=== PATIENT | male | born 1950 | race Caucasian/White ===

== ENCOUNTER → 2016-11-18 | Outpatient (CLI) | payer MEDICARE, OTHER ==
[2016-11-18 11:23] LABS: COMPLEMENT C3 160 MG/DL (90-180); COMPLEMENT C4 30.8 MG/DL (10-40)
[2016-11-20 12:59] LABS: ALBUMIN 3.67 GM/DL (3.29-5.55); ALBUMIN % 52.4 % (55.8-66.1); GAMMA GLOBULIN % 12.2 % (11.1-18.8)
== END ==
LOC: M LAB 10:10
PROVIDERS: ATTEND Internal Medicine Nephrology
DX: N18.3 Chronic kidney disease, stage 3 (moderate) (principal); R80.9 Proteinuria, unspecified; I70.1 Atherosclerosis of renal artery

== ENCOUNTER → 2016-11-19 | Outpatient (REF) | payer MEDICARE, OTHER | LOC: M LAB REF 10:34 | PROVIDERS: ATTEND Internal Medicine Nephrology | DX: N18.3 Chronic kidney disease, stage 3 (moderate) (principal); R80.9 Proteinuria, unspecified; I70.1 Atherosclerosis of renal artery ==

== ENCOUNTER → 2016-11-20 | Outpatient (REF) | payer MEDICARE, OTHER | LOC: M LAB REF 10:25 | PROVIDERS: ATTEND Internal Medicine Nephrology | DX: N18.3 Chronic kidney disease, stage 3 (moderate) (principal); R80.9 Proteinuria, unspecified; I70.1 Atherosclerosis of renal artery ==

== ENCOUNTER → 2016-11-26 | Outpatient (REF) | payer MEDICARE, OTHER ==
[2016-11-28 00:09] LABS: FREE KAPPA LIGHT CHAINS SERUM 74.31 mg/L (3.30-19.40); FREE LAMBDA LIGHT CHAINS SERUM 36.97 mg/L (5.71-26.30); KAPPA/LAMBDA RATIO SERUM 2.01 (0.26-1.65)
== END ==
LOC: M LAB REF 12:50
PROVIDERS: ATTEND Internal Medicine Nephrology
DX: N04.9 Nephrotic syndrome with unspecified morphologic changes (principal); I12.9 Hypertensive chronic kidney disease with stage 1 through stage 4 chronic kidney disease, or unspecified chronic kidney disease; N18.3 Chronic kidney disease, stage 3 (moderate)

== ENCOUNTER → 2017-01-01 | Outpatient (REF) | payer MEDICARE, OTHER ==
[2017-01-01 13:56] LABS: PERCENT SATURATION 24.1 % (19.7-37.4)
== END ==
LOC: M LAB REF 13:16
PROVIDERS: ATTEND Internal Medicine Nephrology
DX: D50.9 Iron deficiency anemia, unspecified (principal)

== ENCOUNTER → 2017-02-19 | Outpatient (CLI) | payer MEDICARE, OTHER ==
[2017-02-19 13:37] LABS: ALBUMIN 3.3 GM/DL (3.2-5.2); ALBUMIN/GLOBULIN RATIO 0.92 (1.00-1.93); BILIRUBIN,TOTAL 0.2 MG/DL (0.2-1.0); CALCIUM LEVEL 8.2 MG/DL (8.8-10.2); CREATININE FOR GFR 2.97 MG/DL (0.70-1.30); FREE T4 0.8 NG/DL (0.76-1.46); GLOMERULAR FILTRATION RATE 22.7 (>49); TOTAL PROTEIN 6.9 GM/DL (6.4-8.2)
[2017-02-19 13:42] LABS: BASO # 0.1 K/mm3 (0.0-0.2); BASO % 0.9 % (0.0-1.0); EOS # 0.5 K/mm3 (0.0-0.50); EOS % 6.4 % (0.0-3.0); LARGE UNSTAINED CELL # 0.2 K/mm3 (0.0-0.4); LARGE UNSTAINED CELL % 1.9 % (0.0-4.0); LYMPH # 1.9 K/mm3 (1.5-4.5); LYMPH % 22.6 % (24.0-44.0); MEAN CORPUSCULAR HEMOGLOBIN 30.7 pg (27.0-33.0); MEAN CORPUSCULAR HGB CONC 33.5 g/dl (32.0-36.5); MEAN CORPUSCULAR VOLUME 91.7 fl (80.0-96.0); MONO # 0.4 K/mm3 (0.0-0.8); MONO % 5.4 % (0.0-5.0); NEUTROPHILS % 62.9 % (36.0-66.0); PLATELET COUNT, AUTOMATED 273 k/mm3 (150-450); RED CELL DISTRIBUTION WIDTH 13.1 % (11.5-14.5); WHITE BLOOD COUNT 7.9 K/mm3 (4.0-10.0)
== END ==
LOC: M SMT 09:03
PROVIDERS: ATTEND Physician Assistant
DX: I10 Essential (primary) hypertension (principal)

== ENCOUNTER → 2017-03-06 | Outpatient (CLI) | payer MEDICARE, OTHER ==
--- NOTE | 2017-03-06 16:04 | REP ---
Clinical: Chronic cough with history of nicotine dependence. Comparison: 08/24/2012 Findings: The bilateral lung walker are well-aerated, symmetric, and relatively clear. Very minimal scattered chronic changes primarily involving the left base are appreciated. No consolidation, significant nodule or mass lesion. No pleural effusion/reaction or pneumothorax. Tracheobronchial tree is patent. No axillary, hilar, or mediastinal adenopathy. Atherosclerotic changes to the thoracic aorta and coronary arteries noted without aortic aneurysm, cardiomegaly or pericardial effusion. Surrounding musculoskeletal structures are intact. Impression: Minimal age-related scarring. Atherosclerotic changes to the thoracic aorta and coronary arteries. No acute mediastinal or pleuroparenchymal process appreciated. Signed by Luis Mann MD 03/06/2017 03:56 P
== END ==
LOC: M RAD 15:32
PROVIDERS: ATTEND Physician Assistant
DX: I70.0 Atherosclerosis of aorta (principal); F17.210 Nicotine dependence, cigarettes, uncomplicated; R05 Cough

== ENCOUNTER → 2017-04-27 | Outpatient (CLI) | payer MEDICARE, OTHER ==
[~2017-04-27] MED LIST: ALLO15TA; AMLO10TA2 PO; BREO1INH INH; BUPR150T3 PO; CALC1CAP31 PO; CINN500C9 PO; CLOB05OI; CLOP75TA2 PO; FISH1000 PO; GEMF600T PO; LOSA50TA20 PO; METO100T5 PO; OCUVCAP PO; PANT40TA2 PO; SIMV80TA PO; VIAG100T PO; VITA-121 PO; VITMTA PO; ZYLO300T4 PO
[2017-04-27 11:54] LABS: BASO % 0.7 % (0.0-1.0); EOS # 0.4 K/mm3 (0.0-0.50); EOS % 6.1 % (0.0-3.0); LARGE UNSTAINED CELL # 0.2 K/mm3 (0.0-0.4); LARGE UNSTAINED CELL % 2.5 % (0.0-4.0); LYMPH # 1.6 K/mm3 (1.5-4.5); LYMPH % 20.5 % (24.0-44.0); MEAN CORPUSCULAR HEMOGLOBIN 31.1 pg (27.0-33.0); MEAN CORPUSCULAR HGB CONC 33.9 g/dl (32.0-36.5); MEAN CORPUSCULAR VOLUME 91.8 fl (80.0-96.0); MONO # 0.5 K/mm3 (0.0-0.8); MONO % 6.7 % (0.0-5.0); NEUTROPHILS # 4.5 K/mm3 (1.8-7.7); NEUTROPHILS % 63.5 % (36.0-66.0); PLATELET COUNT, AUTOMATED 236 k/mm3 (150-450); RED CELL DISTRIBUTION WIDTH 13.2 % (11.5-14.5); WHITE BLOOD COUNT 7.1 K/mm3 (4.0-10.0)
[2017-04-27 11:59] LABS: INR 0.92
[2017-04-27 12:58] LABS: CREATININE FOR GFR 2.85 MG/DL (0.70-1.30); GLOMERULAR FILTRATION RATE 23.8 (>49); POTASSIUM SERUM 4.9 MEQ/L (3.5-5.1)
== END ==
LOC: M SMT 08:51
PROVIDERS: ATTEND Surgery Vascular Surgery
DX: I70.213 Atherosclerosis of native arteries of extremities with intermittent claudication, bilateral legs (principal); D69.8 Other specified hemorrhagic conditions

== ENCOUNTER → 2017-05-31 | Outpatient (CLI) | payer MEDICARE, OTHER ==
--- NOTE | 2017-06-01 08:03 | REP ---
Lumbar spine five views: There are no comparisons. Vertebral body heights and alignment are normal. There is advanced degenerative disc disease at every lumbar level. There is no spondylolysis or spondylolisthesis. There is moderate facet osteoarthritis throughout the lumbar spine. The sacroiliac articulations are unremarkable. I suspect there is a vascular stent in the proximal left renal artery. Impression: Advanced degenerative disc disease and facet osteoarthritis throughout the lumbar spine. Signed by Jason Barahona MD 05/31/2017 03:39 P
--- NOTE | 2017-06-01 08:03 | REP ---
Left hip two views: Mineralization and joint space are normal. There is no fracture or dislocation. There is calcified vascular atheroma. The study is otherwise unremarkable. Impression: Essentially negative left hip. Signed by Jason Barahona MD 05/31/2017 03:40 P
== END ==
LOC: M WUC 14:59
PROVIDERS: ATTEND Physician Assistant
DX: M54.5 Low back pain (principal); M25.552 Pain in left hip; M51.86 Other intervertebral disc disorders, lumbar region

== ENCOUNTER → 2017-06-11 | Outpatient (CLI) | payer MEDICARE, OTHER ==
--- NOTE | 2017-06-11 16:34 | REP ---
MRA BRAIN WITHOUT CONTRAST: HISTORY: Slurred speech. 3D [id number] MR angiography was performed at the level of the [place]. There is no aneurysm or arteriovenous malformation. Mild atherosclerotic disease involves the cavernous and supraclinoid internal carotid arteries, right posterior cerebral artery and left vertebral artery. Major intracranial vessels are patent. There is origin of the left posterior cerebral artery. The right vertebral artery is dominant. IMPRESSION:1. There is no aneurysm or arteriovenous malformation. 2. Atherosclerotic disease as described above. Signed by Goran Azevedo MD 06/11/2017 05:13 P
--- NOTE | 2017-06-11 16:45 | REP ---
MRI BRAIN: Areas of increased signal intensity on T2-weighted images are present in the basal ganglia, thalami, left centrum semiovale and noel. These represent old lacunar infarctions. A right basal ganglia and left thalamic infarction have chronic hemorrhagic components. Areas of increased signal intensity on T2-weighted images are present in the periventricular and subcortical white matter and noel. This represents small vessel ischemic disease. Punctate areas of decreased signal intensity on T2 gradient echo images are present in the cerebellum and noel. This represents hemosiderin secondary to chronic microhemorrhage. There is no acute intraparenchymal hemorrhage, acute infarct, mass or midline shift. The ventricular system and cortical sulci are dilated consistent with mild volume loss. There is no extracerebral collection. Mucosal thickening is present in the maxillary and right sphenoid sinuses. IMPRESSION: 1. 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 2. Small vessel ischemic disease. 3. Mild volume loss. Signed by Goran Azevedo MD 06/11/2017 05:14 P
== END ==
LOC: M RAD 14:06
PROVIDERS: ATTEND Family Medicine
DX: R47.81 Slurred speech (principal)

== ENCOUNTER 2017-06-23 14:59 | Inpatient (IN) | payer MEDICARE, OTHER ==
[~2017-06-23] VITALS: Ht 185.4 cm; Wt 92.0 kg
[2017-06-23] MEDS ORDERED: GEMF600T PO (15:09)
[2017-06-23] MEDS ORDERED: AMLO10TA2 PO (15:09)
[2017-06-23] MEDS ORDERED: BUPR150T3 PO (15:09)
[2017-06-23] MEDS ORDERED: CLOP75TA2 PO (15:09)
[2017-06-23] MEDS ORDERED: CALC1CAP31 PO (15:09)
[2017-06-23] MEDS ORDERED: SIMV80TA PO (15:09)
[2017-06-23] MEDS ORDERED: LOSA50TA20 PO (15:09)
[2017-06-23] MEDS ORDERED: VIAG100T PO (15:09)
[2017-06-23] MEDS ORDERED: ALLO15TA (15:09)
[2017-06-23] MEDS ORDERED: CLOB05OI (15:09)
[2017-06-23] MEDS ORDERED: BREO1INH INH (15:09)
[2017-06-23] MEDS ORDERED: NS 1,000 ML IV SCH (15:18)
[2017-06-23] MEDS ORDERED: PANTOPRAZOLE 40MG INJ (PROTONIX) (C9113) IV ONE (15:30)
[2017-06-23 15:45] LABS: BASO % 0.5 % (0.0-1.0); EOS # 0.2 K/mm3 (0.0-0.50); EOS % 2.7 % (0.0-3.0); LARGE UNSTAINED CELL # 0.2 K/mm3 (0.0-0.4); LARGE UNSTAINED CELL % 2.3 % (0.0-4.0); LYMPH # 1.3 K/mm3 (1.5-4.5); LYMPH % 15.1 % (24.0-44.0); MEAN CORPUSCULAR HEMOGLOBIN 30.3 pg (27.0-33.0); MEAN CORPUSCULAR HGB CONC 33.7 g/dl (32.0-36.5); MONO # 0.5 K/mm3 (0.0-0.8); MONO % 5.4 % (0.0-5.0); NEUTROPHILS # 6.5 K/mm3 (1.8-7.7); NEUTROPHILS % 73.9 % (36.0-66.0); PLATELET COUNT, AUTOMATED 264 k/mm3 (150-450); RED CELL DISTRIBUTION WIDTH 15.3 % (11.5-14.5); WHITE BLOOD COUNT 8.8 K/mm3 (4.0-10.0)
[2017-06-23 15:48] LABS: INR 0.98
[2017-06-23] MEDS ORDERED: VITA-121 PO (16:00)
[2017-06-23] MEDS ORDERED: OCUVCAP PO (16:00)
[2017-06-23] MEDS ORDERED: VITMTA PO (16:00)
[2017-06-23] MEDS ORDERED: ZYLO300T4 PO (16:00)
[2017-06-23] MEDS ORDERED: METO100T5 PO (16:00)
[2017-06-23] MEDS ORDERED: FISH1000 PO (16:00)
[2017-06-23] MEDS ORDERED: CINN500C9 PO (16:00)
[2017-06-23 16:19] LABS: ALBUMIN 2.9 GM/DL (3.2-5.2); ALBUMIN/GLOBULIN RATIO 0.91 (1.00-1.93); ALKALINE PHOSPHATASE 111 U/L (45-117); ALT/SGPT 21 U/L (12-78); ANION GAP 12 MEQ/L (8-16); AST/SGOT 66 U/L (15-37); BILIRUBIN,DIRECT < 0.1 MG/DL (0.0-0.2); BILIRUBIN,TOTAL 0.2 MG/DL (0.2-1.0); BLOOD UREA NITROGEN 81 MG/DL (7-18); CALCIUM LEVEL 8.8 MG/DL (8.8-10.2); CARBON DIOXIDE LEVEL 21 MEQ/L (21-32); CHLORIDE LEVEL 110 MEQ/L (98-107); CREATININE FOR GFR 4.21 MG/DL (0.70-1.30); GLOMERULAR FILTRATION RATE 15.2 (>49); GLUCOSE, FASTING 107 MG/DL (80-110); POTASSIUM SERUM 4.2 MEQ/L (3.5-5.1); SODIUM LEVEL 143 MEQ/L (136-145); TOTAL PROTEIN 6.1 GM/DL (6.4-8.2)
[2017-06-23] MEDS: PANTOPRAZOLE SODIUM 40 MG in D5W MINI-BAG PLUS 50 ML IV SCH ×2 (17:29→21:00)
[2017-06-23] MEDS ORDERED: ACETAMINOPHEN TAB 650MG DOSE (2X325MG) PO PRN (17:45)
[2017-06-23] MEDS ORDERED: ONDANSETRON 4MG/2ML VIAL (J2405) IV PRN (17:45)
--- NOTE | 2017-06-23 20:38 | HPEPDOC ---
General Date of Admission Jun 23, 2017 at 17:38 Chief Complaint The patient is a 66-year-old male admitted with a reason for visit of Gi Bleed. History of Present Illness 66-year-old male with past medical history of hypertension, chronic kidney disease stage IV, asthma, gout, depression, peripheral artery disease, colonic adenoma with high-grade dysplasia, and dyslipidemia presents to the ER with a chief complaint of black tarry stools since Thursday. The patient states that he has had about 5 episodes of black tarry stools since then. The patient states that he had a similar episode about 30+ years ago, at which time he was found to have a stomach ulcer. At this time, the patient states that he has not had any abdominal pain, or complaints of nausea/vomiting, chest pain, shortness of breath, or any recent trauma to the abdominal area. He states that the only blood thinning medication he takes his Plavix. He denies any other acute complaints at this time. In the ER, the patient was noted to have a hemoglobin level of 6.6. The patient will be transfused 2 units of packed red blood cells. A GI consultation has also been ordered for further evaluation and management for possible scope. The patient will be admitted under the hospitalist service and serial monitoring of his hematocrit and hemoglobin will be ordered. Home Medications Scheduled Allopurinol (Zyloprim) 300 Mg Tab, 300 MG PO Q2D, (Reported) Amlodipine Besylate (Amlodipine Besylate) 10 Mg Tab, 10 MG PO DAILY, (Reported) Bupropion Hcl (Bupropion HCl Xl) 150 Mg Tab, 150 MG PO BID, (Reported) Calcitriol (Calcitriol) 0.25 Mcg Cap, 0.25 MCG PO 3XW, (Reported) THU/THU/THU Cholecalciferol (Vitamin D-3) 1,000 Unit Tab, 1,000 UNIT PO DAILY, (Reported) Cinnamon Bark (Cinnamon) 500 Mg Cap, 500 MG PO DAILY, (Reported) Clopidogrel Bisulfate (Clopidogrel) 75 Mg Tab, 75 MG PO DAILY, (Reported) Fish Oil (Fish Oil) 1,000 Mg Cap, 1 CAP PO DAILY, (Reported) Fluticasone/Vilanterol (Breo Ellipta 100-25 Mcg/INH) 1 Inh Inh, 1 PUFF INH DAILY , (Reported) Gemfibrozil (Gemfibrozil) 600 Mg Tab, 900 MG PO DAILY, (Reported) Losartan Potassium (Losartan Potassium) 50 Mg Tab, 50 MG PO DAILY, (Reported) Metoprolol Tartrate (Metoprolol Tartrate) 100 Mg Tab, 150 MG PO DAILY, (Reported ) Multivitamins (Ocuvite Lutein) 1 Cap Cap, 1 CAP PO DAILY, (Reported) Multivitamins *[facility] STOCKED* (Thera M Plus *[facility] STOCKED*) 1 Tab Tab, 1 TAB PO DAILY, (Reported) Simvastatin - High Dose (Simvastatin) 80 Mg Tab, 80 MG PO DAILY, (Reported) Scheduled PRN Sildenafil Citrate (Viagra) 100 Mg Tab, 100 MG PO ASDIRECTED PRN for ERECTILE DYSFUNCTION, (Reported) Allergies Coded Allergies: No Known Allergies (Unverified , 06/23/17) Past Medical History Medical History As noted in HPI. Family History Significant Family History: No pertinent family hx Social History * Smoker: current smoker (patient smokes 8 cigarettes per day. Has been smoking anywhere from 1 pack to 2 packs per day since the age of 15.) Alcohol: Denies Drugs: denies Review of Symptoms Other systems 10 point review of systems negative unless otherwise specified in HPI. Physical Examination General Exam: Positive: Alert, Cooperative, No Acute Distress ENT Exam: Positive: Atraumatic, Mucous membr. moist/pink Neck Exam: Negative: JVD Chest Exam: Positive: Clear to auscultation, Normal air movement Heart Exam: Positive: Rate Normal, Normal S1, Normal S2 Abdomen Exam: Positive: Soft, Negative: Tenderness Extremity Exam: Negative: Tenderness, Swelling Psych Exam: Positive: Oriented x 3 Vital Signs Vital Signs Date Time Temp Pulse Resp B/P (MAP) Pulse Ox O2 Delivery O2 Flow Rate FiO2 06/23/17 20:12 141/71 (94) 06/23/17 19:59 88 98 06/23/17 17:29 99.5 20 06/23/17 14:59 Room Air Laboratory Data Labs 24H Laboratory Tests 2 06/23/17 15:30: White Blood Count 8.8, Red Blood Count 2.18L, Hemoglobin 6.6*L, Hematocrit 19.6L , Mean Corpuscular Volume 90.0, Mean Corpuscular Hemoglobin 30.3, Mean Corpuscular Hemoglobin Concent 33.7, Red Cell Distribution Width 15.3H, Platelet Count 264, Neutrophils (%) (Auto) 73.9H, Lymphocytes (%) (Auto) 15.1L, Monocytes (%) (Auto) 5.4H, Eosinophils (%) (Auto) 2.7, Basophils (%) (Auto) 0.5 , Neutrophils # (Auto) 6.5, Lymphocytes # (Auto) 1.3L, Monocytes # (Auto) 0.5, Eosinophils # (Auto) 0.2, Basophils # (Auto) 0.0, Large Unclassified Cells % 2.3 , Large Unclassified Cells # 0.2, Prothrombin Time 13.1, Prothromb Time International Ratio 0.98, Activated Partial Thromboplast Time 28.8, Anion Gap 12 , Glomerular Filtration Rate 15.2L, Calcium Level 8.8, Aspartate Amino Transf ( AST/SGOT) 66H, Alanine Aminotransferase (ALT/SGPT) 21, Alkaline Phosphatase 111 , Total Bilirubin 0.2, Direct Bilirubin < 0.1, Total Protein 6.1L, Albumin 2.9L , Albumin/Globulin Ratio 0.91L CBC/BMP Laboratory Tests 06/23/17 15:30 Red Blood Count 2.18 L, Mean Corpuscular Volume 90.0, Mean Corpuscular Hemoglobin 30.3, Mean Corpuscular Hemoglobin Concent 33.7, Red Cell Distribution Width 15.3 H, Neutrophils (%) (Auto) 73.9 H, Lymphocytes (%) (Auto ) 15.1 L, Monocytes (%) (Auto) 5.4 H, Eosinophils (%) (Auto) 2.7, Basophils (%) (Auto) 0.5, Neutrophils # (Auto) 6.5, Lymphocytes # (Auto) 1.3 L, Monocytes # ( Auto) 0.5, Eosinophils # (Auto) 0.2, Basophils # (Auto) 0.0 Plan / VTE VTE Prophylaxis Ordered?: Yes Plan Plan Acute GI bleed Hemoglobin noted to be 6.6 in the ER--we will transfuse the patient 2 units of packed red blood cells Patient's blood pressure noted to be stable We will withhold the patient's Plavix at this time IV fluid hydration ordered Protonix drip, Carafate We will serially monitor the patient's H&H GI consult in the ER We will keep the patient nothing by mouth in case of the scope in the a.m. Acute kidney injury superimposed on chronic kidney disease stage IV Likely secondary to acute GI bleed Gentle IV fluid hydration ordered We will repeat BMP in a.m. History of peripheral artery disease Plavix on hold secondary to above Continue statin Hypertension, stable We will hold the patient's antihypertensives at this time given the GI bleed Dyslipidemia continue statin History of colonic adenoma, high-grade dysplasia Follows with Dr. Carmona of GI--he has been consulted here DVT prophylaxis SCDs/TEDs The patient will be admitted to the service of Dr. Avitia, who will begin to follow the patient on 06/24/17 at 7 AM. DALIA SPANGLER MD Jun 23, 2017 20:38
[2017-06-23] MEDS: SUCRALFATE 1 GM TAB PO SCH (21:00)
[2017-06-23] MEDS ORDERED: PERCOCET 5MG/325MG TAB PO PRN (23:45)
--- NOTE | 2017-06-24 00:01 | CR.PDOC ---
[facility] Consultation Consultation DATE OF CONSULTATION: Jun 23, 2017 at 14:59 REFERRING PROVIDER: Dr. Potter ATTENDING PHYSICIAN: Dr. Potter REASON FOR CONSULTATION/CHIEF COMPLAINT: anemia and rectal bleeding. HISTORY OF PRESENT ILLNESS: 66-year-old male patient with HTN, HLD, CKD, ( Cr - 3- 4), gout, PVD and h/o bilateral renal artery stents, ON PLAVIX at home, came to ER for complaints of dark tarry black stools - atleast 5-6 episodes on thursday/ Thursday and later again 2 episodes over the night. GI consulted for the same. Patient reports that he had chronic contipation and he noted acute onset dark stools three day ago and later iproved with only two black formed stools today. Patient also reports loss of appetite and unintentional weight loss of 15 pounds over last few weeks. Patient denies any abdominal pain, or complaints of nausea/vomiting, chest pain, shortness of breath, or any recent trauma to the abdominal area. In the ER, the patient was noted to have a hemoglobin level of 6.6. The patient will be transfused 2 units of packed red blood cells. A GI consultation has also been ordered for further evaluation and management for possible scope. The patient will be admitted under the hospitalist service and serial monitoring of his hematocrit and hemoglobin will be ordered. ALLERGIES: Please see below. HOME MEDICATIONS: Reviewed. ON plavix . PAST MEDICAL HISTORY: as above. PAST SURGICAL HISTORY: Bilateral renal artery stents. Family h/o: NO GI cancers. 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 Prior Endosocpies: Colonoscopy - [address] Carmona -- normal as per patient. No recent EGD. REVIEW OF SYSTEMS:. HEENT: Noral hearing, normal vision. CARDIOVASCULAR: No chest pain.. RESPIRATORY: no SOB. GENITOURINARY: NO burning MUSCULOSKELETAL: h/o arthritis.. GASTROINTESTINAL: above. SKIN: No rash NEUROLOGICAL: No focal weakness. PHYSICAL EXAMINATION: VITAL SIGNS: reviewed. . GENERAL APPEARANCE: NO acute distress. . HEENT: No icterus, noted pallor. RESPIRATORY: Bilateral clear. CARDIOVASCULAR: Normal S1, S2, ABDOMEN: soft, non distended, non- tender, normal bowel sounds. Rectal exam - dark formed stools. No melena. EXTREMITIES: No pedal edema NEUROLOGICAL: NO focal deficits. LABORATORY DATA: reviewed. Impression: -- Acute drop in HB.hCT with dark stools and elevated BUN and Weight loss unintentional-- DDx-- likely upper GI bleeding from Gastric ulcer vs DU vs GI malignancy. less likely lower GI bleeding. Recommendations: -- NPO -- IV PPI continuous drip for 24- 48 hours. then switch to Oral PPI for course of 8 weeks. -- Monitor Hb.HCT and transfuse slowly to goal Hb of 9 -- Patient and his ( at bedside) were educated about the need for EGD furhter evalation and also the risk of the procedure, benefits, all alternatives available including no intervention. Patient verbaluzed understanding and wanted EGD. -- Educated patient about the risks and benefits of stopping plavix at this time. -- In view of recent colonosopy normal very unlikely lower GI bleeding. Plan of care educated to patient and primary team. Vital Signs/I&O Vital Signs Date Time Temp Pulse Resp B/P (MAP) Pulse Ox O2 Delivery O2 Flow Rate FiO2 06/23/17 21:57 88 153/82 (105) 97 06/23/17 17:29 99.5 20 06/23/17 14:59 Room Air Allergies Coded Allergies: No Known Allergies (Unverified , 06/23/17) Home Medications Scheduled Allopurinol (Zyloprim) 300 Mg Tab, 300 MG PO Q2D, (Reported) Amlodipine Besylate (Amlodipine Besylate) 10 Mg Tab, 10 MG PO DAILY, (Reported) Bupropion Hcl (Bupropion HCl Xl) 150 Mg Tab, 150 MG PO BID, (Reported) Calcitriol (Calcitriol) 0.25 Mcg Cap, 0.25 MCG PO 3XW, (Reported) MON/WED/FRI Cholecalciferol (Vitamin D-3) 1,000 Unit Tab, 1,000 UNIT PO DAILY, (Reported) Cinnamon Bark (Cinnamon) 500 Mg Cap, 500 MG PO DAILY, (Reported) Clopidogrel Bisulfate (Clopidogrel) 75 Mg Tab, 75 MG PO DAILY, (Reported) Fish Oil (Fish Oil) 1,000 Mg Cap, 1 CAP PO DAILY, (Reported) Fluticasone/Vilanterol (Breo Ellipta 100-25 Mcg/INH) 1 Inh Inh, 1 PUFF INH DAILY , (Reported) Gemfibrozil (Gemfibrozil) 600 Mg Tab, 900 MG PO DAILY, (Reported) Losartan Potassium (Losartan Potassium) 50 Mg Tab, 50 MG PO DAILY, (Reported) Metoprolol Tartrate (Metoprolol Tartrate) 100 Mg Tab, 150 MG PO DAILY, (Reported ) Multivitamins (Ocuvite Lutein) 1 Cap Cap, 1 CAP PO DAILY, (Reported) Multivitamins *[facility] STOCKED* (Thera M Plus *[facility] STOCKED*) 1 Tab Tab, 1 TAB PO DAILY, (Reported) Simvastatin - High Dose (Simvastatin) 80 Mg Tab, 80 MG PO DAILY, (Reported) Scheduled PRN Sildenafil Citrate (Viagra) 100 Mg Tab, 100 MG PO ASDIRECTED PRN for ERECTILE DYSFUNCTION, (Reported) EL GOMEZ MD Jun 24, 2017 00:01
[2017-06-24 00:20] VITALS: BP 153/79
[2017-06-24] MEDS: PANTOPRAZOLE SODIUM 40 MG in D5W MINI-BAG PLUS 50 ML IV SCH ×4 (01:32→20:00)
[2017-06-24 04:00] VITALS: BP 134/63; PULSE 101
[2017-06-24 05:47] LABS: MEAN CORPUSCULAR HEMOGLOBIN 31.5 pg (27.0-33.0); MEAN CORPUSCULAR HGB CONC 34.5 g/dl (32.0-36.5); MEAN CORPUSCULAR VOLUME 91.3 fl (80.0-96.0); RED CELL DISTRIBUTION WIDTH 15.1 % (11.5-14.5); WHITE BLOOD COUNT 7.9 K/mm3 (4.0-10.0)
[2017-06-24 06:04] LABS: CALCIUM LEVEL 9.1 MG/DL (8.8-10.2); CREATININE FOR GFR 4.01 MG/DL (0.70-1.30); GLOMERULAR FILTRATION RATE 16.1 (>49); POTASSIUM SERUM 4.2 MEQ/L (3.5-5.1)
[2017-06-24] MEDS: SUCRALFATE 1 GM TAB PO SCH ×4 (07:30→21:00)
[2017-06-24 08:00] VITALS: BP 158/72
[2017-06-24] MEDS: VITAMIN D 1,000 INTERNATIONAL UNITS TABLET PO SCH (09:00)
[2017-06-24] MEDS: OCUVITE 1 TAB PO SCH (09:00)
[2017-06-24] MEDS ORDERED: ALLOPURINOL 300 MG TAB PO SCH (09:00)
[2017-06-24] MEDS ORDERED: CALCITRIOL 0.25 MCG CAP (S0169) PO SCH (09:00)
[2017-06-24] MEDS: OMEGA-3 1050MG CAPSULE PO SCH (09:00)
[2017-06-24] MEDS: SIMVASTATIN 40 MG TAB PO SCH (09:00)
[2017-06-24 12:00] VITALS: BP 157/86
[2017-06-24] MEDS ORDERED: PROPOFOL 200 MG/20 ML VIAL As Ordered ONE (13:33)
[2017-06-24] MEDS ORDERED: LIDOCAINE 2% INJ 100 MG/5 ML SDV (FOR ANES.) As Ordered ONE (13:34)
--- NOTE | 2017-06-24 13:57 | ROOR ---
Patient Name: Doug Daigle Procedure Date: 06/24/2017 1:33 PM Date of : 1950 Age: 66 Room: [facility] Gender: Male Note Status: Finalized Procedure: Upper GI endoscopy Indications: Melena, Suspected upper gastrointestinal bleeding Providers: Deo Correa MD Referring MD: 2. Inpatient 2. Inpatient Requesting Provider: Medicines: Monitored Anesthesia Care Complications: No immediate complications. Procedure: Pre-Anesthesia Assessment: - Prior to the procedure, a History and Physical was performed, and patient medications and allergies were reviewed. The patient is competent. The risks and benefits of the procedure and the sedation options and risks were discussed with the patient. All questions were answered and informed consent was obtained. Patient identification and proposed procedure were verified by the physician, the nurse and the periodontal assistant in the procedure room. Mental Status Examination: alert and oriented. Airway Examination: normal oropharyngeal airway and neck mobility. Respiratory Examination: clear to auscultation. CV Examination: normal. Prophylactic Antibiotics: The patient does not require prophylactic antibiotics. Prior Anticoagulants: The patient has taken no previous anticoagulant or antiplatelet agents. ASA Grade Assessment: III - A patient with severe systemic disease. After reviewing the risks and benefits, the patient was deemed in satisfactory condition to undergo the procedure. The anesthesia plan was to use monitored anesthesia care (MAC). Immediately prior to administration of medications, the patient was re-assessed for adequacy to receive sedatives. The heart rate, respiratory rate, oxygen saturations, blood pressure, adequacy of pulmonary ventilation, and response to care were monitored throughout the procedure. The physical status of the patient was re-assessed after the procedure. The Endoscope was introduced through the mouth, and advanced to the second part of duodenum. The upper GI endoscopy was accomplished without difficulty. The patient tolerated the procedure well. Findings: The examined esophagus was normal. A few dispersed, diminutive non-bleeding erosions were found in the gastric antrum. There were no stigmata of recent bleeding. Biopsies were taken with a cold forceps for Helicobacter pylori testing. Verification of patient identification for the specimen was done by the physician and nurse using the patient's name, date and medical record number. Estimated blood loss was minimal. Two non-bleeding cratered duodenal ulcers with a clean ulcer base (Emmanuel Class III) were found in the first portion of the duodenum. The largest lesion was 8 mm in largest dimension. Impression: - Normal esophagus. - Non-bleeding erosive gastropathy. Biopsied. - Multiple non-bleeding duodenal ulcers with a clean ulcer base (Emmanuel Class III). Recommendation: - Return patient to [facility] for ongoing care. - Patient has a contact number available for emergencies. The signs and symptoms of potential delayed complications were discussed with the patient. Return to normal activities tomorrow. Written discharge instructions were provided to the patient. - Full liquid diet today, then advance as tolerated to high fiber diet. - Continue present medications. - Post-Procedure Resumption of Antiplatelet Medications: Restart Plavix (clopidogrel) tomorrow 75 mg PO daily as per patient PMD. - Use a proton pump inhibitor PO daily for 8 weeks. - No ibuprofen, naproxen, or other non-steroidal anti-inflammatory drugs. - Await pathology results. - Return to GI clinic in 2 weeks -- Please call [phone] for the appointment. - Return to primary care physician. Deo Correa MD Deo Correa MD 06/24/2017 1:57:27 PM This report has been signed electronically. Number of Addenda: 0 Note Initiated On: 06/24/2017 1:33 PM Estimated Blood Loss: Estimated blood loss was minimal.
[2017-06-24 14:55] VITALS: BP 148/79
[2017-06-24] MEDS ORDERED: FUROSEMIDE 40 MG/4 ML VIAL (J1940) IV ONE (16:15)
[2017-06-24] MEDS: METOPROLOL TART 50 MG TAB PO SCH (16:45)
[2017-06-24] MEDS: GEMFIBROZIL 600 MG TAB PO SCH (16:46)
[2017-06-24] MEDS: LOSARTAN 50 MG TAB PO SCH (16:46)
[2017-06-24 19:18] VITALS: BP 123/71
--- NOTE | 2017-06-24 21:32 | IPN ---
DATE: 06/24/2017 SUBJECTIVE: Today, the patient tells me that he is feeling significantly better after receiving two units of blood. He also tells me that he has no shortness of breath. He denies any further dark stools and has no complaints at this time. OBJECTIVE: VITAL SIGNS: Temperature 98.1, pulse 106, respiratory rate 18, blood pressure 142/66, oxygen saturation 97% on room air. GENERAL: He is a pleasant, elderly man sitting on the edge of his bed. He does not appear to be in any acute distress. He is accompanied by his . NEUROLOGIC: Cranial nerves II-XII are grossly intact. HEENT: He does appear to have some mild pallor. He has moist mucous membranes. No elevation of central venous pressure (CVP). CARDIOVASCULAR EXAMINATION: S1, S2, mildly tachycardic. RESPIRATORY EXAMINATION: Quite clear. No rales. ABDOMINAL EXAMINATION: Benign. EXTREMITIES: No clubbing, cyanosis, or edema. LABORATORY STUDIES: WBC 7.9, hemoglobin 8.2 and stable, hematocrit 23.9, and platelet count 231. Chemistry panel: Sodium 145, potassium 4.2, chloride 114, bicarbonate 24, BUN 66, creatinine 4.0, INR 0.9. No new imaging. ASSESSMENT AND PLAN: This is a 66-year-old man with likely upper gastrointestinal (GI) bleed. PROBLEM LIST: 1. Upper gastrointestinal (GI) bleed. The patient does have melena. He recently had a colonoscopy which was negative. This is highly suspicious for an upper GI bleed. The patient has been nothing by mouth. We are holding his Plavix. Gastroenterology has seen the patient and he is planning for esophagogastroduodenoscopy (EGD) today. The patient is on Carafate and Protonix drip. He had a positive response to the blood and I suspect this is likely slow bleeding ulcers. We will await endoscopy report. We will continue to monitor his hemoglobin and hematocrit which appears stable at this time. I suspect he would benefit from two additional units of packed red blood cells (PRBCs) to get him to a goal hemoglobin of greater than 9 as per gastroenterology's recommendations. 2. Acute on chronic kidney disease. It does appear to be improving with blood urea nitrogen (BUN) down from 81 to 66 and a creatinine of 4.2 down to 4.0. Continue to monitor closely. He is receiving blood products and a Protonix drip. The patient is on calcitriol. 3. History of peripheral arterial disease. His Plavix is on hold. He is continued on his statin. 4. Hypertension. He is hypertensive and mildly tachycardic. I will resume his home antihypertensives with holding parameters. 5. Dyslipidemia. Continue statin. 6. History of high-grade colonic adenomas in the past. The patient normally follows with Dr. Cramona. Dr. Correa was consulted by the emergency room (ER) and will complete the endoscopy. However, he should continue to follow with Dr. Carmona on the outpatient basis. 7. Deep vein thrombosis (DVT) prophylaxis. Sequentials and thromboembolic-deterrent stockings (TEDS). No pharmacological agents in the setting of potential bleeding. 8. Vitamin D deficiency. Continue with supplementation. DISPOSITION: Await the esophagogastroduodenoscopy (EGD) results and stabilization of his hemoglobin and hemoglobin. Once this is achieved, he could likely be discharged to followup with the gastroenterology clinic.
[2017-06-25 00:34] VITALS: BP 138/79
[2017-06-25] MEDS: PANTOPRAZOLE SODIUM 40 MG in D5W MINI-BAG PLUS 50 ML IV SCH (00:45)
[2017-06-25 03:00] LABS: MEAN CORPUSCULAR HEMOGLOBIN 30.7 pg (27.0-33.0); MEAN CORPUSCULAR HGB CONC 33.9 g/dl (32.0-36.5); MEAN CORPUSCULAR VOLUME 90.7 fl (80.0-96.0); RED CELL DISTRIBUTION WIDTH 16.1 % (11.5-14.5); WHITE BLOOD COUNT 9.8 K/mm3 (4.0-10.0)
[2017-06-25 03:21] LABS: CALCIUM LEVEL 8.5 MG/DL (8.8-10.2); CREATININE FOR GFR 3.55 MG/DL (0.70-1.30); GLOMERULAR FILTRATION RATE 18.5 (>49); POTASSIUM SERUM 3.7 MEQ/L (3.5-5.1)
--- NOTE | 2017-06-25 03:58 | IPNPDOC ---
Text Note Date of Service The patient was seen on 06/25/17. NOTE Received a page about patient a little after 2:15 AM 06/25/17. Patient was dressed , had pulled IV out and was sitting in his chair ready to leave. He did not want to stay in the hospital. He was described as alert and orientated. Vitals were stable. Assessed patient in his room at around 2:30 AM. Patient was dressed in clothes sitting in chair next to bed. He was alert and orientated x3. Knew , name, where he was, what date, why he was in the hospital. He expressed to me that he has had several family members in hospitals including this one and thought about that while here. He had a nightmare last night about it and kept him up most of the night. Patient was not able to sleep and was ready to leave the hospital. Discussed that he was having a GI bleed and that risks of leaving included continued bleeding and risk of . Patient understood. Asked patient if he would stay to be assessed in the morning with labs and by day hospitalist and he agreed. Plan: Continue to monitor patient's vitals. Put in for early labs in case patient changes his mind. Make sure patient is stable. Not leaving AMA but patient understands that is an option. VS,Fishbone, I+O VS, Fishbone, I+O Laboratory Tests 06/24/17 05:27 Red Blood Count 2.62 L, Mean Corpuscular Volume 91.3, Mean Corpuscular Hemoglobin 31.5, Mean Corpuscular Hemoglobin Concent 34.5, Red Cell Distribution Width 15.1 H, Calcium Level 9.1 06/24/17 10:09 06/24/17 15:51 06/24/17 22:08 06/25/17 02:53 Red Blood Count 3.13 L, Mean Corpuscular Volume 90.7, Mean Corpuscular Hemoglobin 30.7, Mean Corpuscular Hemoglobin Concent 33.9, Red Cell Distribution Width 16.1 H, Calcium Level 8.5 L Vital Signs Date Time Temp Pulse Resp B/P (MAP) Pulse Ox O2 Delivery O2 Flow Rate FiO2 06/25/17 00:34 99.9 101 20 138/79 (98) 98 Room Air I&O- Last 24 Hours up to 6 AM 06/25/17 06:00 Intake Total 400 ml Output Total 750 ml Balance -350 ml GME ATTESTATION GME ATTESTATION My preceptor for this patient encounter was physically present in the building during the encounter and was fully available. As needed, all aspects of the patient interview, examination, medical decision making process, and medical care plan development were reviewed and approved by the preceptor. Preceptor is aware and concurs with the plan as stated in the body of this note and will attest to such by his/her cosignature. YEN NICOLE DO Jun 25, 2017 03:39
[2017-06-25 04:17] VITALS: BP 154/74
[2017-06-25] MEDS ORDERED: PANT40TA2 PO (06:38)
[2017-06-25] MEDS: SIMVASTATIN 40 MG TAB PO SCH (08:10)
[2017-06-25] MEDS: OCUVITE 1 TAB PO SCH (08:10)
[2017-06-25] MEDS: LOSARTAN 50 MG TAB PO SCH (08:11)
[2017-06-25] MEDS: GEMFIBROZIL 600 MG TAB PO SCH (08:11)
[2017-06-25] MEDS: VITAMIN D 1,000 INTERNATIONAL UNITS TABLET PO SCH (08:12)
[2017-06-25] MEDS: SUCRALFATE 1 GM TAB PO SCH (08:12)
[2017-06-25 08:13] VITALS: BP 159/78
[2017-06-25] MEDS: OMEGA-3 1050MG CAPSULE PO SCH (08:13)
[2017-06-25] MEDS: METOPROLOL TART 50 MG TAB PO SCH (08:13)
[2017-06-25] MEDS ORDERED: INFLUENZA VIRUS VACCINE HIGH DOSE 0.5 ML SYRINGE (90662) IM ONE (09:00)
[2017-06-25] MEDS ORDERED: PANTOPRAZOLE 40MG TAB (PROTONIX) PO SCH (09:00)
[2017-06-25] MEDS ORDERED: amLODIPine 10 MG TAB PO SCH (09:00)
--- NOTE | 2017-06-25 15:19 | DSES ---
DATE OF ADMISSION: 06/23/2017 DATE OF DISCHARGE: 06/25/2017 DISCHARGE DIAGNOSIS: Duodenal ulcer. SECONDARY DIAGNOSES: 1. Acute blood loss anemia secondary to gastrointestinal bleeding. 2. Anxiety. 3. Acute on chronic kidney disease. 4. Peripheral arterial disease. 5. Hypertension. 6. Dyslipidemia. 7. Vitamin D deficiency. 8. Symptomatic anemia. HOSPITAL COURSE: The patient is a 66-year-old man who presented with melanotic stools for several days that he noticed, as well as some lightheadedness and dizziness when standing with dyspnea on exertion. He was found to have a hemoglobin in the mid 6s. He normally follows with Dr. Carmona as he has a history of high grade colonic adenomas in the past. When the patient presented to the emergency room, gastroenterology was consulted, who did see the patient and there was concern for ulcers. The patient received 3 units of blood total during his stay with a positive response to each unit. He was taken for endoscopy and found to have a duodenal ulcer with clean bases, for which Dr. Correa suggested high fiber diet, proton pump inhibitor daily for 8 weeks, as well as resumption of Plavix, which was held at the time of his arrival to the emergency room, and followup at the GI clinic in 2 weeks for pathology results. The patient did have acute kidney injury, which did improve with fluid resuscitation and blood transfusions. SUBJECTIVE: This morning, the patient is eager to go home. He has no complaints. He feels completely back to normal. He is very anxious about being in the hospital. OBJECTIVE: VITAL SIGNS: Maximum temperature (t-max) 99.9, current tenderness 99.3, pulse 103, respiratory rate 20, blood pressure 154/74, oxygen saturation 96% on room air. GENERAL: He is an elderly man sitting in a recliner. He does not appear to be in any acute distress. HEENT: Cranial nerves II through XII are grossly intact. He has moist mucous membranes. No elevation in central venous pressure. CARDIOVASCULAR EXAM: S1, S2. Regular rate and rhythm. He is not tachycardic on my examination. RESPIRATORY EXAM: Clear. ABDOMINAL EXAM: Obese. Bowel sounds present. The abdomen is soft. EXTREMITIES: No clubbing, cyanosis or edema. LABORATORY STUDIES: WBC 9.8, hemoglobin 9.6, hematocrit 28.4, platelet count 294. Chemistry panel: Sodium 146, potassium 3.7, chloride 113, bicarbonate 20, BUN 47, creatinine is 3.5, down from 4.2 at the time of admission, trending toward his baseline. ASSESSMENT AND PLAN: This is a 66-year-old man with upper gastrointestinal bleed and symptomatic anemia secondary to duodenal ulcer. 1. Symptomatic anemia secondary to upper gastrointestinal bleed/duodenal ulcer. The patient is status post esophagogastroduodenoscopy (EGD). He will be discharged on a proton pump inhibitor for 8 weeks and followup with Dr. Correa in the gastroenterology clinic in 2 weeks for pathology results. Thereafter, he should followup with Dr. 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 He will resume to Plavix today upon discharge. Symptomatic anemia has resolved with transfusions, which he had a positive response to. He is to have a high fiber diet. At this time, he is tolerating a regular diet and is up and ambulating at his functional baseline, independent of his activities of daily living and doing quite well. 2. Acute on chronic kidney injury, likely prerenal azotemia and also an element of upper GI blood digestion with elevated BUN. It does appear to be improving and returning to his baseline. He is continued on calcitriol. 3. Peripheral arterial disease. Plavix was held at the time of his admission, but it is resumed at this time. He is continued on a statin. 4. Hypertension. His antihypertensives are resumed upon discharge. He likely does have some anxiety attributing to his mild tachycardia. I would also not be surprised if the patient is a drinker. 5. Dyslipidemia. Continue statin. 6. History of high grade colonic adenomas in the past. He normally follows with Dr. Carmona. He can followup with Dr. Carmona regarding this. 7. Vitamin D deficiency. He is continued on supplementation. 8. Deep vein thrombosis (DVT) prophylaxis. Sequential compression device (SCD) and TEDs. DISPOSITION: The patient is at his functional baseline. His clinical symptoms have resolved. He is to followup with gastroenterology within 2 weeks and his primary care provider within 7 days. His activity is as prior to admission. His diet is as prior to admission with increased fiber. He is to return to the emergency room if his symptoms worsen. MEDICATIONS: At the time of discharge: - Protonix 40 mg every morning - allopurinol 300 mg every 2 days - amlodipine 10 mg daily - bupropion XL 150 mg twice a day - calcitriol 0.25 mcg three times a week on Mondays, Wednesdays and Fridays - vitamin D 1000 units daily - cinnamon bark as per the patient, 5 mg daily - Plavix 75 mg daily - fish oil 1 gram daily - Breo Ellipta 100/25 one puff inhaled daily - gemfibrozil 900 mg daily twice a day - metoprolol tartrate 150 mg daily - multivitamin one capsule daily - Ocuvite one capsule daily - sildenafil 100 mg as directed for erectile dysfunction - simvastatin 80 mg daily The patient is to hold his losartan and followup with his primary care provider. Greater than 30 minutes was spent organizing disposition.
[2017-06-26] MEDS ORDERED: INFLUENZA VIRUS VACCINE HIGH DOSE 0.5 ML SYRINGE (90662) IM SCH (09:00)
== END 2017-06-25 10:14 | disposition home or self-care (01) | DRG 378 ==
LOC: M ED 14:59 → M ED INP 17:38 → M PCU 06-24 14:47
PROVIDERS: ADMIT Internal Medicine; ATTEND Internal Medicine
PROC: 30233N1 Transfusion of Nonautologous Red Blood Cells into Peripheral Vein, Percutaneous Approach (ICD-10-PCS; 2017-06-23)
PROC: 0DB78ZX Excision of Stomach, Pylorus, Via Natural or Artificial Opening Endoscopic, Diagnostic (ICD-10-PCS; principal; 2017-06-24 12:25)
DX: K92.2 Gastrointestinal hemorrhage, unspecified (principal); N18.4 Chronic kidney disease, stage 4 (severe); D62 Acute posthemorrhagic anemia; N17.9 Acute kidney failure, unspecified; K26.9 Duodenal ulcer, unspecified as acute or chronic, without hemorrhage or perforation; I12.9 Hypertensive chronic kidney disease with stage 1 through stage 4 chronic kidney disease, or unspecified chronic kidney disease; E78.5 Hyperlipidemia, unspecified; E55.9 Vitamin D deficiency, unspecified; I73.9 Peripheral vascular disease, unspecified; Z79.02 Long term (current) use of antithrombotics/antiplatelets; Z79.899 Other long term (current) drug therapy; J45.909 Unspecified asthma, uncomplicated; F17.210 Nicotine dependence, cigarettes, uncomplicated; K31.9 Disease of stomach and duodenum, unspecified

== ENCOUNTER → 2017-06-23 | Outpatient (CLI) | payer MEDICARE, OTHER ==
[2017-06-23 11:17] LABS: CALCIUM LEVEL 9.2 MG/DL (8.8-10.2); CREATININE FOR GFR 4.28 MG/DL (0.70-1.30); GLOMERULAR FILTRATION RATE 14.9 (>49); PERCENT SATURATION 13.7 % (19.7-50.0); POTASSIUM SERUM 5.1 MEQ/L (3.5-5.1)
[2017-06-23 11:35] LABS: BASO # 0.1 K/mm3 (0.0-0.2); BASO % 0.5 % (0.0-1.0); EOS # 0.4 K/mm3 (0.0-0.50); EOS % 3.2 % (0.0-3.0); LARGE UNSTAINED CELL # 0.2 K/mm3 (0.0-0.4); LARGE UNSTAINED CELL % 1.3 % (0.0-4.0); LYMPH # 1.9 K/mm3 (1.5-4.5); LYMPH % 14.7 % (24.0-44.0); MEAN CORPUSCULAR HEMOGLOBIN 30.6 pg (27.0-33.0); MONO # 0.5 K/mm3 (0.0-0.8); MONO % 4.3 % (0.0-5.0); NEUTROPHILS # 9.1 K/mm3 (1.8-7.7); NEUTROPHILS % 76.1 % (36.0-66.0); PLATELET COUNT, AUTOMATED 302 k/mm3 (150-450); RED CELL DISTRIBUTION WIDTH 15.5 % (11.5-14.5); WHITE BLOOD COUNT 11.9 K/mm3 (4.0-10.0)
== END ==
LOC: M SMT 09:26
PROVIDERS: ATTEND Physician Assistant
DX: K62.5 Hemorrhage of anus and rectum (principal)

== ENCOUNTER 2017-06-26 18:28 | Emergency (ER) | payer MEDICARE, OTHER ==
[~2017-06-26] VITALS: Ht 185.4 cm; Wt 97.7 kg
[2017-06-26] MEDS ORDERED: FUROSEMIDE 100 MG/10 ML VIAL (J1940) IV ONE (19:00)
[2017-06-26 19:21] LABS: BASO # 0.1 K/mm3 (0.0-0.2); BASO % 0.4 % (0.0-1.0); EOS # 0.2 K/mm3 (0.0-0.50); EOS % 1.2 % (0.0-3.0); LARGE UNSTAINED CELL # 0.2 K/mm3 (0.0-0.4); LARGE UNSTAINED CELL % 1.1 % (0.0-4.0); LYMPH # 1.9 K/mm3 (1.5-4.5); LYMPH % 10.5 % (24.0-44.0); MEAN CORPUSCULAR HEMOGLOBIN 29.9 pg (27.0-33.0); MEAN CORPUSCULAR HGB CONC 31.1 g/dl (32.0-36.5); MONO # 0.8 K/mm3 (0.0-0.8); MONO % 4.8 % (0.0-5.0); NEUTROPHILS # 13.4 K/mm3 (1.8-7.7); NEUTROPHILS % 81.9 % (36.0-66.0); PLATELET COUNT, AUTOMATED 359 k/mm3 (150-450); RED CELL DISTRIBUTION WIDTH 15.8 % (11.5-14.5); WHITE BLOOD COUNT 16.4 K/mm3 (4.0-10.0)
[2017-06-26 19:23] LABS: INR 1.1
[2017-06-26 19:26] LABS: ABG BASE EXCESS -12.9 (-2.0-2.0); ABG HCO3 13.4 MEQ/L (22.0-26.0); ABG PARTIAL PRESSURE CO2 32.1 mmHg (35.0-45.0); ABG PARTIAL PRESSURE O2 61.6 mmHg (75.0-100.0); ABG STANDARD HCO3 14.1 MEQ/L (22.0-26.0); ABG TOTAL CO2 14.3 MEQ/L (23.0-31.0)
[2017-06-26 19:27] LABS: ALBUMIN 2.6 GM/DL (3.2-5.2); ALBUMIN/GLOBULIN RATIO 0.55 (1.00-1.93); BILIRUBIN,DIRECT 0.1 MG/DL (0.0-0.2); BILIRUBIN,TOTAL 0.4 MG/DL (0.2-1.0); CALCIUM LEVEL 8.8 MG/DL (8.8-10.2); CREATININE FOR GFR 4.31 MG/DL (0.70-1.30); FREE T4 0.95 NG/DL (0.76-1.46); GLOMERULAR FILTRATION RATE 14.8 (>49); POTASSIUM SERUM 4.4 MEQ/L (3.5-5.1); TOTAL PROTEIN 7.3 GM/DL (6.4-8.2)
[2017-06-26 19:28] LABS: ABG pH (ARTERIAL) 7.237 UNITS (7.350-7.450)
[2017-06-26 19:41] LABS: MEAN CORPUSCULAR VOLUME 96.2 fl (80.0-96.0)
[2017-06-26] MEDS ORDERED: PIPERACILLIN/TAZOBACTAM SOD 3.375 GM in D5W MINI-BAG PLUS 50 ML IV ONE (19:45)
[2017-06-26] MEDS ORDERED: VANCOMYCIN HCL 1,000 MG, VIAL MATE ADAPTER 1 EACH in D5W 250 ML IV ONE (20:00)
[2017-06-26 20:39] LABS: ABG BASE EXCESS -9.3 (-2.0-2.0); ABG HCO3 15.5 MEQ/L (22.0-26.0); ABG PARTIAL PRESSURE O2 116.7 mmHg (75.0-100.0); ABG TOTAL CO2 16.5 MEQ/L (23.0-31.0); ABG pH (ARTERIAL) 7.332 UNITS (7.350-7.450)
[2017-06-26 21:51] VITALS: BP 121/72
--- NOTE | 2017-06-27 08:55 | REP ---
Clinical: Chest pain. Comparison: 08/05/2013. Findings: Evaluation is limited by portable technique and underpenetration which accentuate the interstitium and pulmonary vasculature. Pulmonary interstitial edema cannot be excluded. Right lower lobe opacity suggests acute infiltrate and possible layering effusion. No pneumothorax. Skeletal structures intact. Impression: 1. Right lower lobe infiltrate. 2. Cannot exclude interstitial edema. Signed by Luis Mann MD 06/27/2017 08:46 A
--- NOTE | 2017-06-28 07:52 | ECGEPIP ---
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
== END 2017-06-26 21:55 | disposition short-term general hospital (02) ==
LOC: M ED 18:28
DX: I21.4 Non-ST elevation (NSTEMI) myocardial infarction (principal); N17.9 Acute kidney failure, unspecified; J96.00 Acute respiratory failure, unspecified whether with hypoxia or hypercapnia; J18.9 Pneumonia, unspecified organism; J81.0 Acute pulmonary edema; I12.0 Hypertensive chronic kidney disease with stage 5 chronic kidney disease or end stage renal disease; Z72.0 Tobacco use
CPT/HCPCS: 36415; 36600; 51702; 71010; 80048; 80076; 82550; 82553; 82803; 83690; 83880; 84439; 84443; 84484; 85025; 85610; 85730; 87040; 93005; 93041; 94660; 94760; 96374; 96375; 99291; J1940; J2543; J3370